=== PATIENT | female | born 1970 | race Caucasian/White ===

== ENCOUNTER 2018-02-28 17:31 | Emergency (ER) | payer OTHER, MEDICAID, SELFPAY ==
--- NOTE | 2018-02-28 17:43 | ED_ITS ---
HPI - Wound/Laceration <ILEANA Hogan - Last Filed: 02/28/18 20:57> General Chief Complaint: Wound/Laceration Stated Complaint: Rt wrist lac Time Seen by Provider: 02/28/18 17:42 Source: patient Mode of arrival: ambulatory Limitations: no limitations History of Present Illness HPI narrative: 47-year-old healthy female that is an everyday smoker here for complaint of laceration to her left hand and her left wrist. She states that she got angry and she punched through a glass window prior to arrival. She denies any desire to hurt anyone or herself at this point. She states she just got angry and try to release her anger. She redness to that she has been drinking this evening. She says that she has had 4 shots and a beer. She denies any other injuries. She states that she has got good range of motion to her hand and to her wrist. She does not know when her last tetanus was. Review of Systems <ILEANA Hogan - Last Filed: 02/28/18 20:57> Constitutional Denies chills, Denies fever(s), Denies lethargy and Denies weakness Eyes Denies change in vision, Denies eye discharge, Denies irritation and Denies loss of vision ENT Ears, Nose, Mouth, and Throat: Denies change in voice, Denies neck pain and Denies sore throat Cardiovascular Denies chest pain, Denies irregular heart rhythm, Denies lightheadedness, Denies palpitations, Denies dyspnea, Denies dyspnea on exertion and Denies orthopnea Respiratory Denies cough, Denies dyspnea, Denies dyspnea on exertion and Denies wheezing Gastrointestinal Gastrointestinal: Denies abdominal pain, Denies change in bowel habits, Denies diarrhea, Denies nausea and Denies vomiting Genitourinary Denies hematuria, Denies flank pain, Denies urinary incontinence and Denies urinary urgency Musculoskeletal Denies neck pain Comments: Laceration to left wrist and left hand Integumentary/Breasts Denies pruritus, Denies erythema, Denies rash and Denies wounds Neurologic Denies confusion, Denies loss of vision and Denies weakness Psychiatric Denies anxiety, Denies confusion, Denies depression, Denies homicidal ideation and Denies suicidal ideation Endocrine Denies palpitations Hematologic/Lymphatic Denies easy bruising Allergic/Immunologic Denies wheezing Exam <ILEANA Hogan - Last Filed: 02/28/18 20:57> Initial Vital Signs Initial Vital Signs: Vital Signs Temperature 98.4 F 02/28/18 17:45 Pulse Rate 106 H 02/28/18 17:45 Respiratory Rate 22 02/28/18 17:45 Blood Pressure 139/94 H 02/28/18 17:45 Pulse Oximetry 98 02/28/18 17:45 Const General: cooperative and well developed Nutritional Appearance: well nourished Orientation: alert, awake, oriented x3 and not confused [facility] Mouth: oral mucosae normal and moist mucous membranes Eyes General: appearance normal, both eyes and all related structures Eyelids: eyelids normal Conjunctivae: conjunctivae normal Sclera: sclerae normal Pupils: PERRL EOM: EOM intact bilaterally Resp Effort & Inspection: normal respiratory effort, able to speak in complete sentences, no respiratory distress and no use of accessory muscles Auscultation: clear to auscultation bilaterally, no rales, no rhonchi and no wheezes Cardio Rate: regular rate Rhythm: regular rhythm Heart Sounds: no click, no gallops, no murmurs and no rubs Pulses: normal peripheral pulses Skin General: no rashes or lesions noted, No jaundice and No petechiae Neuro General: alert, oriented x3, gait normal and no focal motor deficits Speech: speech normal Extrem Other: 4.5 cm laceration to the left wrist ventral radial aspect. 4.5 cm laceration to the proximal area of the left hand and left thumb. Distal sensation is intact. Distal cap refill is less than 2 sec. Distal full range of motion is intact. <Dread Turner DO - Last Filed: 02/28/18 21:55> Initial Vital Signs Initial Vital Signs: Vital Signs Temperature 98.4 F 02/28/18 17:45 Pulse Rate 106 H 02/28/18 17:45 Respiratory Rate 22 02/28/18 17:45 Blood Pressure 139/94 H 02/28/18 17:45 Pulse Oximetry 98 02/28/18 17:45 Procedures <ILEANA Hogan - Last Filed: 02/28/18 20:57> Laceration Repair Laceration 1: Site: hand Side (If applicable): left Size (cm): 4.5 Description: flap and irregular Depth: simple, single layer Local Anesthetic: lidocaine 1% Amount of anesthesia used (mL): 5 Pre-repair: wound explored and irrigated extensively Skin layer closed with: nylon Size (cm): 5-0 Number of sutures: 14 Technique: simple, interrupted Laceration 2: Site: other (Left wrist) Size (cm): 4.5 Description: flap and irregular Depth: simple, single layer Amount of anesthesia used (mL): 5 Pre-repair: wound explored and irrigated extensively Skin layer closed with: nylon Size (cm): 5-0 Number of sutures: 10 Technique: simple, interrupted Course <ILEANA Hogan - Last Filed: 02/28/18 20:57> Orders Ordered: ED Orders 02/28/18 17:54 XR hand LT min 3V Stat XR wrist LT min 3V Stat Vital Signs - 8 hr 02/28/18 17:45 02/28/18 20:59 Temperature 98.4 F 98 F Pulse Rate 106 H 92 H Respiratory Rate 22 20 Blood Pressure 139/94 H 141/88 H Pulse Oximetry 98 98 <Dread Turner DO - Last Filed: 02/28/18 21:55> Orders Ordered: ED Orders 02/28/18 17:54 XR hand LT min 3V Stat XR wrist LT min 3V Stat Vital Signs - 8 hr 02/28/18 17:45 02/28/18 20:59 Temperature 98.4 F 98 F Pulse Rate 106 H 92 H Respiratory Rate 22 20 Blood Pressure 139/94 H 141/88 H Pulse Oximetry 98 98 MDM - Wound/Laceration <ILEANA Hogan - Last Filed: 02/28/18 20:57> Imaging Data Left wrist : Radiologist's impression: [address] [address] XRay Report Signed Patient: Ryan Mcbride MR#: [id number] : 1970 Acct:[id number] Age/Sex: 47 / F Date of Service: 02/28/18 Loc: ED Accession Number: [id number] Procedure: XR wrist LT min 3V Ordering Provider: Faraz Joshi PROCEDURE: XR WRIST LT MIN 3V INDICATIONS: Laceration left hand and wrist after punching glass TECHNIQUE: 4 views of the wrist were acquired. COMPARISON: None. FINDINGS: Bones: No fractures or dislocations. No suspicious bony lesions. Scaphoid view: Scaphoid is intact. Soft tissues: No suspicious soft tissue calcifications. No radiopaque foreign bodies. IMPRESSION: No acute fracture or dislocation of the left wrist. No radiopaque foreign bodies identified. Dictated by: Dimas Galarza M.D. on 02/28/2018 at 19:00 Approved by: Dimas Galarza M.D. on 02/28/2018 at 19:02 left hand: Radiologist's impression: [address] [place] [id number] XRay Report Signed Patient: Ryan Mcbride MR#: [id number] : 1970 Acct:[id number] Age/Sex: 47 / F Date of Service: 02/28/18 Loc: Accession Number: [id number] Procedure: XR hand LT min 3V Ordering Provider: Faraz Joshi PROCEDURE: XR HAND LT MIN 3V INDICATIONS: Laceration left wrist and hand after punching through glass TECHNIQUE: 3 views of the hand(s) acquired. COMPARISON: None. FINDINGS: Bones: No fractures or dislocations. Carpal bones are normally aligned. No suspicious bony lesions. Soft tissues: No suspicious soft tissue calcifications. No radiopaque foreign bodies. Soft tissue edema of the first digit noted. IMPRESSION: No acute fracture or dislocation of the left hand. No radiopaque foreign bodies identified. Dictated by: Dimas Galarza M.D. on 02/28/2018 at 19:02 Approved by: Dimas Galarza M.D. on 02/28/2018 at 19:04 [facility] Narrative Medical decision making narrative: X-ray of the left hand and the left wrist were obtained were negative for any fractures or foreign bodies. The 2 lacerations to the left wrist and the left hand were closed with 10 sutures and 14 sutures respectively with 5-0 nylon. Sutures removed in 7-10 days. Wounds dressed with bacitracin and a dressing. Tetanus was updated in the emergency room this evening. Patient is under the influence of alcohol however she does have family here in the emergency room and stated that they will take good care of her. [id number] Tylenol and Motrin as needed for any discomfort. Follow up with her primary care provider. For any worsening symptoms return to the emergency room. Discharge Plan Departure Patient Disposition: Home Clinical Impression: Laceration of wrist, left Discharge Date/Time: 02/28/18 21:00 Interventions: ED Discharge Assessment Last Done: 02/28/18 20:59 Instructions: DI for Laceration Repair Activity Restrictions/Additional Instructions: X-rays to the left wrist and hand were negative for any fractures or foreign bodies. Lacerations to the left wrist was closed with 10 sutures. Laceration to the left hand was closed with 14 sutures. Sutures to be removed in 7-10 days. Keep wound area clean and dry for 36 hr. Dress wound daily with bacitracin and a dressing. Do not soak wound. May shower briefly but dry wound and redressed with bacitracin and a dressing. Use [id number] Tylenol or Motrin as needed for any discomfort. Follow up with her primary care provider. Return emergency room for any worsening symptoms. Tetanus was updated emergency room this evening. [facility]: [facility] [Provider Group] <Dread Turner DO - Last Filed: 02/28/18 21:55> Cosign ED Attending Андрей Attestation: I was available for consultation during this patient's emergency department encounter
[2018-02-28 17:45] VITALS: BP 139/94; PULSE 106; RESP 22; TEMP 36.9; O2SAT 98
--- NOTE | 2018-02-28 17:54 | DI.RAD.S_ITS ---
PROCEDURE: XR HAND LT MIN 3V INDICATIONS: Laceration left wrist and hand after punching through glass TECHNIQUE: 3 views of the hand(s) acquired. COMPARISON: None. FINDINGS: Bones: No fractures or dislocations. Carpal bones are normally aligned. No suspicious bony lesions. Soft tissues: No suspicious soft tissue calcifications. No radiopaque foreign bodies. Soft tissue edema of the first digit noted. IMPRESSION: No acute fracture or dislocation of the left hand. No radiopaque foreign bodies identified. Dictated by: Dimas Galarza M.D. on 02/28/2018 at 19:02 Approved by: Dimas Galarza M.D. on 02/28/2018 at 19:04
--- NOTE | 2018-02-28 17:54 | DI.RAD.S_ITS ---
PROCEDURE: XR WRIST LT MIN 3V INDICATIONS: Laceration left hand and wrist after punching glass TECHNIQUE: 4 views of the wrist were acquired. COMPARISON: None. FINDINGS: Bones: No fractures or dislocations. No suspicious bony lesions. Scaphoid view: Scaphoid is intact. Soft tissues: No suspicious soft tissue calcifications. No radiopaque foreign bodies. IMPRESSION: No acute fracture or dislocation of the left wrist. No radiopaque foreign bodies identified. Dictated by: Dimas Galarza M.D. on 02/28/2018 at 19:00 Approved by: Dimas Galarza M.D. on 02/28/2018 at 19:02
[2018-02-28] MEDS: DIPHTH,PERTUSS(ACELL),TET VAC 0.5 ML SYRINGE IM (19:30)
--- NOTE | 2018-02-28 20:21 | PC.NURSE ---
Bacitracin to suture lines,then telfa and kerlix and coban,well approximated.
[2018-02-28 20:59] VITALS: BP 141/88; PULSE 92; RESP 20; TEMP 36.6; O2SAT 98
== END 2018-02-28 21:00 | disposition home or self-care (01) ==
PROVIDERS: Emergency Provider Nurse Practitioner Family
DX: S61.412A Laceration without foreign body of left hand, initial encounter (principal); W25.XXXA Contact with sharp glass, initial encounter
CPT/HCPCS: 12004; 73110; 73130; 90471; 90715; 99283